=== PATIENT | female | born 1945 | race Caucasian/White ===

== ENCOUNTER 2019-06-20 08:42 | Day surgery (SDC) | payer BC, MEDICARE ==
[~2019-06-20] VITALS: Ht 162.6 cm; Wt 52.6 kg
[~2019-06-20 08:42] MED LIST: CARV-39 PO; CARV12.52 PO; HYDR-3246 PO; HYDROCHLOROTHIAZIDE PO; METH750T87 PO; NORT25CA78 PO
[2019-06-20] MEDS ORDERED: DILT240C77 PO (09:19)
[2019-06-20 09:20] VITALS: BP 177/106
[2019-06-20] MEDS ORDERED: B COMPLEX PO (09:35)
[2019-06-20] MEDS ORDERED: VITAMIN D3 PO (09:35)
[2019-06-20 09:43] LABS: CREATININE 0.83 mg/dL (0.55-1.02)
[2019-06-20 09:53] LABS: MEAN CORPUSCULAR HGB CONC 33.7 g/dL (32.4-35.8); MEAN PLATELET VOLUME 6.7 fL (7.4-10.4); PLATELET COUNT 230 x10^3/uL (130-400); RED BLOOD COUNT 4.55 x10^6/uL (3.82-5.3); RED CELL DISTRIBUTION WIDTH 14.7 % (9.6-15.2)
[2019-06-20 10:06] LABS: ANION GAP 8 mmol/L (5-15); CHLORIDE 107 mmol/L (98-107)
[2019-06-20 10:38] LABS: BASOPHILS # (AUTO) 0.01 x10^3/uL (0-0.1); BASOPHILS % (AUTO) 0 % (0-1); EOSINOPHILS # (AUTO) 0.06 x10^3/uL (0-0.4); EOSINOPHILS % (AUTO) 1 % (1-7); LYMPHOCYTES % (AUTO) 19 % (22-44); MD SCAN; MONOCYTES # (AUTO) 0.32 x10^3/uL (0.2-0.8); MONOCYTES % (AUTO) 8 % (2-9); NEUTROPHILS # (AUTO) 2.93 x10^3/uL (1.8-6.8); NEUTROPHILS % (AUTO) 71 % (42-75)
[2019-06-20] MEDS ORDERED: FLUMAZENIL 0.1 MG/1 ML, 5ML ONE (11:44)
[2019-06-20] MEDS ORDERED: MIDAZOLAM 1 MG/ML, 5ML ONE (11:44)
[2019-06-20] MEDS ORDERED: FENTANYL PF 100 MCG/2ML ONE (11:44)
[2019-06-20] MEDS ORDERED: HEPARIN 1,000 UNITS/ML, 10ML ONE (11:45)
[2019-06-20] MEDS ORDERED: PROTAMINE SULFATE 10 MG/ML, 25ML ONE (11:45)
[2019-06-20] MEDS ORDERED: NALOXONE 1 MG/ML, 2ML ONE (11:45)
[2019-06-20] MEDS ORDERED: VISIPAQUE 270 MG/ML, 50ML BOTTLE ONE (12:00)
[2019-06-20] MEDS ORDERED: LIDOCAINE 1%, 10ML ONE (12:23)
[2019-06-20] MEDS ORDERED: hydrALAzine 20 MG/ML, 1ML ONE (12:42)
[2019-06-20] MEDS ORDERED: hydrALAzine 20 MG/ML, 1ML IV PRN (14:00)
== END 2019-06-20 15:00 | disposition home or self-care (01) ==
LOC: OUT 08:42
PROVIDERS: ATTEND Surgery
DX: K55.1 Chronic vascular disorders of intestine (principal); I10 Essential (primary) hypertension; Z79.899 Other long term (current) drug therapy; Z88.8 Allergy status to other drugs, medicaments and biological substances; Z98.1 Arthrodesis status; Z98.51 Tubal ligation status; Z98.890 Other specified postprocedural states; Z95.820 Peripheral vascular angioplasty status with implants and grafts; Z82.49 Family history of ischemic heart disease and other diseases of the circulatory system; Z80.0 Family history of malignant neoplasm of digestive organs
CPT/HCPCS: 36415; 37246; 75726; 80048; 85025; 99156; 99157; C1725; C1751; C1769; C1894; J0360; J1644; J2250; J2720; J3010; Q9966; U0001; J2310